=== PATIENT | male | born 1940 ===

== ENCOUNTER 2020-10-11 06:40 | Day surgery (SDC) | payer OTHER | END 2020-10-11 11:50 | disposition home or self-care (01) | LOC: AMB-ENDOS 06:40 | PROVIDERS: ATTEND Surgery | DX: K62.89 Other specified diseases of anus and rectum (principal) ==

== ENCOUNTER 2020-11-26 06:50 | Inpatient (IN) | payer OTHER ==
[~2020-11-26] VITALS: Ht 170.2 cm; Wt 72.6 kg
[~2020-11-26 06:50] MED LIST: ATACAND16 MG PO; FINASTERIDE PO; ISORBIDE PO; JANUVIA25 MG PO; LIPITOR40 M1 PO; PROTONIX40 M1 PO; TAMS0.4C PO
== END 2020-11-27 17:22 | disposition home or self-care (01) | DRG 347 ==
LOC: CIR.AMB 06:50 → O/R 15:50 → SURH 15:50
PROVIDERS: ADMIT Surgery; ATTEND Surgery
PROC: 0DBP7ZZ Excision of Rectum, Via Natural or Artificial Opening (ICD-10-PCS; principal; 2020-11-26 11:00)
DX: D12.5 Benign neoplasm of sigmoid colon (principal); K62.5 Hemorrhage of anus and rectum; N18.6 End stage renal disease; I10 Essential (primary) hypertension; Z20.822 Contact with and (suspected) exposure to COVID-19; Z99.2 Dependence on renal dialysis